=== PATIENT | male | born 1965 | race Two or more races ===

== ENCOUNTER 2021-09-21 19:53 | Emergency (ER) | payer MEDICARE, OTHER ==
[~2021-09-21] VITALS: Ht 180.3 cm; Wt 68.0 kg
[~2021-09-21 19:53] MED LIST: BUPR150T12 PO; DIAZ10TA4 PO; MORP100T6 PO; OXYC30TA2 PO
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
[2021-09-21] MEDS ORDERED: LIDOCAINE 2% 20 ML MDV ONE ×2 (20:18→20:24)
[2021-09-21] MEDS ORDERED: LIDOCAINE 2% 20 ML MDV TP ONE (20:30)
--- NOTE | 2021-09-21 21:09 | NUR ---
RAPHAEL BUSH AT PT'S BEDSIDE FOR WOUND CARE
[2021-09-21 22:36] VITALS: BP 112/70
--- NOTE | 2021-09-21 22:36 | NUR ---
Patient discharged to home in stable condition. Written and verbal after care instructions given. Patient verbalizes understanding of instruction.
== END 2021-09-21 22:37 | disposition home or self-care (01) ==
LOC: ER 20:21
DX: S81.811A Laceration without foreign body, right lower leg, initial encounter (principal); F17.200 Nicotine dependence, unspecified, uncomplicated; Z87.820 Personal history of traumatic brain injury; Z87.81 Personal history of (healed) traumatic fracture; Z79.891 Long term (current) use of opiate analgesic; Z79.899 Other long term (current) drug therapy; W01.198A Fall on same level from slipping, tripping and stumbling with subsequent striking against other object, initial encounter; Y93.89 Activity, other specified; Y92.89 Other specified places as the place of occurrence of the external cause; Y99.8 Other external cause status
CPT/HCPCS: 12004; 99282; A6403; J3490 ×2

== ENCOUNTER 2021-09-23 18:19 | Emergency (ER) | payer MEDICARE, OTHER ==
[~2021-09-23] VITALS: Ht 172.7 cm; Wt 67.1 kg
[2021-09-23 18:32] VITALS: BP 100/60
[2021-09-23] MEDS ORDERED: LIDOCAINE /MPF 1% VIAL 5 ML VIAL ONE (18:56)
[2021-09-23] MEDS ORDERED: CEFTRIAXONE 1 G VIAL ONE (18:56)
[2021-09-23] MEDS ORDERED: CEFTRIAXONE 1 G VIAL IM ONE (19:00)
[2021-09-23] MEDS ORDERED: CEPH500T PO (19:26)
== END 2021-09-23 20:16 | disposition home or self-care (01) ==
LOC: ER 18:21
DX: S81.811D Laceration without foreign body, right lower leg, subsequent encounter (principal); F17.200 Nicotine dependence, unspecified, uncomplicated; Z79.899 Other long term (current) drug therapy; X58.XXXD Exposure to other specified factors, subsequent encounter
CPT/HCPCS: 96372; 99283; 99406; A6403; J0696; J3490

== ENCOUNTER 2021-10-05 16:03 | Emergency (ER) | payer MEDICARE, OTHER ==
[~2021-10-05] VITALS: Ht 177.8 cm; Wt 72.6 kg
[~2021-10-05 16:03] MED LIST changes: +CEPH500T PO
[2021-10-05 16:12] VITALS: BP 108/69
--- NOTE | 2021-10-05 16:12 | NUR ---
SUTURE REMOVAL,LACERATION TO R CALF REAPIRED 09/21/2021
--- NOTE | 2021-10-05 16:58 | NUR ---
Patient discharged to home in stable condition. Written and verbal after care instructions given. Patient verbalizes understanding of instruction.
== END 2021-10-05 16:59 | disposition home or self-care (01) ==
LOC: ER 16:13
DX: S81.811D Laceration without foreign body, right lower leg, subsequent encounter (principal); Z48.02 Encounter for removal of sutures; Z87.820 Personal history of traumatic brain injury; Z60.2 Problems related to living alone; Z79.891 Long term (current) use of opiate analgesic; Z79.899 Other long term (current) drug therapy; X58.XXXD Exposure to other specified factors, subsequent encounter